=== PATIENT | female | born 1980 | race Two or more races ===

== ENCOUNTER 2024-07-22 08:48 | Emergency (ER) | payer SELFPAY ==
[~2024-07-22] VITALS: Ht 167.6 cm; Wt 68.5 kg
[2024-07-22 09:07] VITALS: BP 117/82; TEMP 98.2; O2SAT 100
== END 2024-07-22 09:09 | disposition left against medical advice (07) ==
LOC: ER 08:52
DX: R11.10 Vomiting, unspecified (principal); Z53.21 Procedure and treatment not carried out due to patient leaving prior to being seen by health care provider

== ENCOUNTER 2024-08-02 14:34 | Emergency (ER) | payer MEDICAID ==
[~2024-08-02] VITALS: Ht 167.6 cm; Wt 70.3 kg
[2024-08-02 14:38] VITALS: TEMP 99
[2024-08-02] MEDS ORDERED: FAMOTIDINE/PF INJ 20 MG/2 ML VIAL IV ONE (14:53)
[2024-08-02] MEDS ORDERED: METOCLOPRAMIDE HCL 10 MG/2 ML VIAL ONE (14:53)
[2024-08-02] MEDS: IV NS 0.9% 1,000 ML BAG IV ONE (15:00)
[2024-08-02] MEDS: FAMOTIDINE/PF INJ 20 MG/2 ML VIAL IV ONE (15:05)
[2024-08-02 15:10] LABS: BASOPHILS % (AUTO) 0.5 % (0.0-2.0); EOSINOPHILS % (AUTO) 0.1 % (0.0-6.0); HEMATOCRIT 37 % (33-45); HEMOGLOBIN 12.2 g/dL (11.5-14.8); LYMPHOCYTES # (AUTO) 1.6 K/uL (0.8-4.8); LYMPHOCYTES % (AUTO) 18.7 % (20.0-44.0); MEAN CORPUSCULAR HEMOGLOBIN 29 PG (26.0-33.0); MEAN CORPUSCULAR HGB CONC 33 g/dl (31.0-36.0); MEAN CORPUSCULAR VOLUME 87 fL (82-100); MONOCYTES # (AUTO) 0.3 K/uL (0.1-1.30); MONOCYTES % (AUTO) 3.4 % (2.0-12.0); NEUTROPHILS # (AUTO) 6.7 K/uL (1.8-8.9); NEUTROPHILS % (AUTO) 77.3 % (43.0-81.0); PLATELET COUNT (AUTO) 299 K/uL (150-450); RED BLOOD CELL COUNT(AUTO) 4.26 MIL/uL (4.0-5.2); RED CELL DISTRIBUTION WIDTH 16.4 % (11.5-15.0); WHITE BLOOD COUNT (AUTO) 8.7 K/uL (4.3-11.0)
[2024-08-02] MEDS: METOCLOPRAMIDE HCL 10 MG/2 ML VIAL IV ONE (15:10)
[2024-08-02 15:17] LABS: CALCIUM, SERUM 9.3 mg/dL (8.5-10.1); CREATININE 0.9 mg/dL (0.6-1.3)
[2024-08-02 15:23] LABS: ALBUMIN 3.8 g/dL (3.4-5.0); BILIRUBIN,DIRECT 0.2 mg/dL (0.0-0.2); BILIRUBIN,TOTAL 0.5 mg/dL (0.2-1.0); TOTAL PROTEIN, SERUM 8.1 g/dL (6.4-8.2)
[2024-08-02] MEDS ORDERED: POTASSIUM CHLORIDE 20 MEQ TAB.PRT.SR PO ONE (16:02)
[2024-08-02 16:03] LABS: APPEARANCE,URINE CLEAR (CLEAR); BILIRUBIN,URINE Negative (NEGATIVE); BLOOD, URINE Trace-intact Ery/uL (NEGATIVE); COLOR,URINE YELLOW (YELLOW); KETONES,URINE 15 mg/dL (NEGATIVE); LEUKOCYTE ESTERASE ,URINE Negative (NEGATIVE); NITRITE, URINE NEGATIVE (NEGATIVE); PROTEIN,URINE Negative (NEGATIVE); UGLUCOSE Negative (NEGATIVE)
[2024-08-02 16:05] LABS: ADD URINE CULTURE NO; BACTERIA,URINE Few /HPF (None Seen); PREGNANCY TEST URINE QUAL NEGATIVE (NEGATIVE); SQUAMOUS EPITHELIAL CELL,UR Few /HPF (None Seen)
[2024-08-02] MEDS: POTASSIUM CHLORIDE 20 MEQ TAB.PRT.SR PO ONE (16:07)
[2024-08-02] MEDS ORDERED: HALOPERIDOL LACTATE INJ 5 MG/ML VIAL ONE (16:18)
[2024-08-02] MEDS: HALOPERIDOL LACTATE INJ 5 MG/ML VIAL IV ONE (16:30)
[2024-08-02 16:55] VITALS: BP 125/65; O2SAT 98
== END 2024-08-02 16:55 | disposition home or self-care (01) ==
LOC: ER 14:38
DX: R10.84 Generalized abdominal pain (principal); K31.84 Gastroparesis; I10 Essential (primary) hypertension; Z59.00 Homelessness unspecified; Z88.0 Allergy status to penicillin
CPT/HCPCS: 99284; 96374; 96375; 96361; 85025; 80048; 83690; 80076; 84703; 81001; 36415; J1630; J1308; J2765; J7030